=== PATIENT | female | born 1995 | race Two or more races ===

== ENCOUNTER 2018-12-14 05:26 | Day surgery (SDC) | payer OTHER ==
[~2018-12-14 05:26] MED LIST: PRENATAL CAPSU1 EACH PO; ZOFRAN2 MG/M1 IV
== END 2018-12-14 15:00 | disposition home or self-care (01) ==
LOC: CIR.AMB 05:26
DX: N80.2 Endometriosis of fallopian tube (principal); Z30.2 Encounter for sterilization; N73.6 Female pelvic peritoneal adhesions (postinfective)

== ENCOUNTER 2020-05-28 17:13 | Emergency (ER) | payer OTHER ==
[~2020-05-28] VITALS: Ht 157.5 cm; Wt 88.9 kg
== END 2020-05-28 20:59 | disposition home or self-care (01) ==
LOC: ER 17:13
DX: N39.0 Urinary tract infection, site not specified (principal); B96.29 Other Escherichia coli [E. coli] as the cause of diseases classified elsewhere

== ENCOUNTER 2021-06-11 11:50 | Emergency (ER) | payer OTHER ==
[~2021-06-11] VITALS: Ht 157.5 cm; Wt 72.6 kg
[2021-06-11] MEDS ORDERED: KETO10TA2 PO (14:31)
== END 2021-06-11 14:35 | disposition home or self-care (01) ==
LOC: ER 11:50
DX: S89.92XA Unspecified injury of left lower leg, initial encounter (principal); V49.88XA Car occupant (driver) (passenger) injured in other specified transport accidents, initial encounter; Y92.89 Other specified places as the place of occurrence of the external cause